=== PATIENT | female | born 1970 | race Caucasian/White ===

== ENCOUNTER 2017-04-08 07:25 | Emergency (ER) | payer OTHER ==
[~2017-04-08] VITALS: Ht 162.6 cm; Wt 104.0 kg
[~2017-04-08 07:25] MED LIST: CEFD300C PO; CYCL5TAB PO; IBUP-232 PO
[2017-04-08 07:28] VITALS: BP 176/102; PULSE 98; RESP 16; TEMP 97.7; O2SAT 98
[2017-04-08] MEDS ORDERED: AMLO5TAB2 PO (07:42)
[2017-04-08] MEDS ORDERED: MUSCLE RELAXER (07:42)
[2017-04-08] MEDS ORDERED: MEDR4PAK PO (07:42)
--- NOTE | 2017-04-08 08:14 | PD ---
HPI Chief Complaint: ENT Complaint Time Seen by Provider: 07:47 Travel History International Travel<30 days: No Contact w/Intl Traveler<30days: No Traveled to known affect area: No History of Present Illness HPI The patient was seen and examined in the presence of the nurse. This patient developed some discomfort in the right side of her neck 1 month ago. It lasted week and resolved spontaneously. Return 5 days ago. There is been no injury. She's had no fever. She completed antibiotics with no change in symptoms. She seen her primary physician for this and had lab studies as well as an outpatient CT scan of the neck. She has a referral to ENT coming up. She just came here out of frustration as she doesn't know what the diagnosis is. sHe denies muscle weakness or sensory loss or any radicular symptoms on the right arm PFSH Past Medical History Diabetes: Yes (METFORMIN) Patient Takes Glucophage: No Diminished Hearing: No Hypertension: Yes Respiratory: Yes (PNA) Tetanus Vaccination: > 5 Years Influenza Vaccination: No ?: Not Tubal Ligation: Yes Past Surgical History Section: Yes (x2) Cholecystectomy: Yes Tonsillectomy: Yes Social History Alcohol Use: No Tobacco Use: Yes (1 ppd) Substance Use: No Allergies-Medications (Allergen,Severity, Reaction): Coded Allergies: Codeine (Verified Allergy, Severe, hives, 04/08/17) Morphine (Verified Allergy, Severe, migraines, 04/08/17) Reported Meds & Prescriptions Reported Meds & Active Scripts Active Reported [Muscle Relaxer] Medrol Dosepak (Methylprednisolone) 4 Mg Dspk 4 Mg PO DIRECTED Per Pharmacist direction Amlodipine (Amlodipine Besylate) 5 Mg Tab 5 Mg PO DAILY Review of Systems General / Constitutional: No: Fever HENT: No: Headaches Cardiovascular: No: Chest Pain or Discomfort Respiratory: No: Cough Physical Exam Narrative NEUROLOGICAL: Awake and alert. Pupils are equal round and reactive. Motor and sensory grossly within normal limits. Five out of 5 muscle strength in all muscle groups. Normal speech. SKIN: Focused skin assessment reveals no rash or ulcers. Skin is warm and dry. Palpation shows no induration or nodules. Throat clear. Neck: No midline tenderness. No visible swelling or erythema or bruising or warmth. I don't detect any significant asymmetry between the 2 sides. Data Data Last Documented VS Vital Signs Date Time Temp Pulse Resp B/P Pulse Ox O2 Delivery O2 Flow Rate FiO2 04/08/17 07:28 97.7 98 16 176/102 98 MDM Medical Decision Making Medical Screen Exam Complete: Yes Emergency Medical Condition: Yes Medical Record Reviewed: Yes Differential Diagnosis Disc herniation, sternocleidomastoid strain, pinched nerve Narrative Course I have reviewed the patient's electronic medical record. Etiology of her neck symptoms is not clear. There are no objective findings on exam. I don't see sign of infection and there is been no injury. She has had extensive workup including labs and CT scan but just doesn't know the results. I advised her to call her physician this morning to obtain those results. She has referral to specialist coming up Seems more musculoskeletal than anything I offered her medicine for pain and she declines Diagnosis Primary Impression: Neck pain on right side Referrals: Ear / Nose / Throat Specialist call for appointment Patient Instructions: General Instructions Departure Forms: Work Release, Enter return to work date: April 11, 2017 Tests/Procedures Additional Instructions: The patient was advised to follow up with their physician and return if they worsen. Med/Other Pt SpecificInfo: Other Disposition: 01 DISCHARGE HOME Condition: Stable Jani Smith MD April 08, 2017 08:14
== END 2017-04-08 08:22 | disposition home or self-care (01) ==
LOC: PHED 07:25
DX: M54.2 Cervicalgia (principal); E11.9 Type 2 diabetes mellitus without complications; I10 Essential (primary) hypertension; F17.200 Nicotine dependence, unspecified, uncomplicated; Z79.84 Long term (current) use of oral hypoglycemic drugs; Z87.09 Personal history of other diseases of the respiratory system
CPT/HCPCS: 99283